=== PATIENT | female | born 1940 | race Caucasian/White ===

== ENCOUNTER 2017-08-24 19:49 | Inpatient (IN) | payer OTHER ==
[~2017-08-24] VITALS: Ht 165.1 cm; Wt 52.7 kg
[2017-08-24 20:32] LABS: HEMATOCRIT 37.8 % (36.0-46.0); HEMOGLOBIN 12.7 G/DL (11.9-15.5); MCH 30.4 PG (29.0-34.0); MCHC 33.6 G/DL (30.0-36.0); MCV 90.4 FL (83-99); PLATELET COUNT 173 K/uL (156-360); RBC DIS.WIDTH-CV 12.5 % (11.8-14.6); RBC DIS.WIDTH-SD 41.1 % (39-53); RED BLOOD COUNT 4.18 M/uL (3.80-5.20); WHITE BLOOD COUNT 8.7 K/uL (4.1-10.2)
[2017-08-24 20:42] LABS: ALBUMIN 3.7 g/dL (3.2-4.8)
[2017-08-24 20:43] LABS: CHLORIDE 101 mEq/L (99-109); POTASSIUM 3.9 mEq/L (3.7-5.4); SODIUM 136 mEq/L (136-147)
[2017-08-24 20:45] LABS: GLUCOSE 98 mg/dL (70-99); TOTAL PROTEIN 6.8 g/dL (6.4-8.3)
[2017-08-24 20:47] LABS: TOTAL BILIRUBIN 1.2 mg/dL (0.0-1.0)
[2017-08-24 20:48] LABS: ALKALINE PHOSPHATASE 95 IU/L (3-129)
[2017-08-24 20:49] LABS: CREATININE 0.9 mg/dL (0.6-1.3); GFR ESTIMATE (CALCULATED) > 59 mL/min/
[2017-08-24 20:50] LABS: AST (GOT) 26 IU/L (2-34); UREA NITROGEN (BUN) 22 mg/dL (9-23)
[2017-08-24 20:52] LABS: ALT (GPT) 15 IU/L (3-49); LIPASE 20 U/L (1.0-51.0)
[2017-08-24 20:54] LABS: TROP-I INTERPRETATION NEGATIVE; TROPONIN-I 0.01 ng/mL (0.0-0.30)
[2017-08-24 21:03] LABS: APPEARANCE CLEAR ((CLEAR)); BILIRUBIN NEGATIVE; BLOOD MODERATE; COLOR YELLOW ((YELLOW)); GLUCOSE (STRIP) NEGATIVE; KETONES 20; LEUKOCYTES NEGATIVE; NITRITE NEGATIVE; PROTEIN (STRIP) NEGATIVE; UROBILINOGEN 0.2 MG/DL (0.2-1.0)
[2017-08-24 21:16] LABS: BACTERIA NONE SEEN /HPF; EPITHELIAL CELLS RARE /HPF; MUCUS TRACE /LPF; UCUL ADDED? NO; WHITE BLOOD CELLS NONE SEEN /HPF (0-5)
[2017-08-25 04:07] VITALS: BP 114/71
[2017-08-25 05:50] LABS: HEMATOCRIT 39.3 % (36.0-46.0); HEMOGLOBIN 12.9 G/DL (11.9-15.5); MCHC 32.8 G/DL (30.0-36.0); MCV 91.4 FL (83-99); PLATELET COUNT 185 K/uL (156-360); RBC DIS.WIDTH-CV 12.6 % (11.8-14.6); RBC DIS.WIDTH-SD 41.6 % (39-53); WHITE BLOOD COUNT 6.2 K/uL (4.1-10.2)
[2017-08-25 06:05] LABS: TROP-I INTERPRETATION NEGATIVE; TROPONIN-I 0.01 ng/mL (0.0-0.30)
[2017-08-25 06:14] LABS: HDL CHOLESTEROL 60 MG/DL (Desirable>=50); LDL CHOLESTEROL 70 mg/dL (Desirable<100); NON-HDL CHOLESTEROL 78 mg/dL (Desirable<160); TOTAL CHOLESTEROL 138 mg/dL (Desirable<200); TRIGLYCERIDES 41 MG/DL (Normal: <150)
[2017-08-25 07:00] VITALS: BP 137/78
[2017-08-25 09:47] LABS: THYROTROPIN (TSH) 0.75 MIU/L (0.4-5.5)
[2017-08-25 11:45] VITALS: BP 131/75
[2017-08-25 12:23] LABS: TROP-I INTERPRETATION NEGATIVE; TROPONIN-I < 0.01 ng/mL (0.0-0.30)
[2017-08-25] MEDS ORDERED: LIPITOR10 MG PO (15:14)
[2017-08-25 15:15] VITALS: BP 139/73
[2017-08-25] MEDS ORDERED: METOPROLOL TART25 MG PO (15:15)
[2017-08-25 20:00] VITALS: BP 134/73
[2017-08-25 23:55] VITALS: BP 144/92
[2017-08-26 04:00] VITALS: BP 126/77
[2017-08-26 08:00] VITALS: BP 153/96
[2017-08-26 09:06] LABS: Estimated Average Glucose 131 mg/dL (70-123); HEMOGLOBIN A1c (GLYCOHEMOGLOB) 6.2 % HGB (Below 5.7)
[2017-08-26 12:00] VITALS: BP 155/96
[2017-08-26 15:56] VITALS: BP 146/97
[2017-08-26 19:04] VITALS: BP 138/82
[2017-08-26 23:35] VITALS: BP 138/62
[2017-08-27 03:15] VITALS: BP 130/78
[2017-08-27 08:00] VITALS: BP 124/72
[2017-08-27 18:48] VITALS: BP 132/90
[2017-08-27 21:30] VITALS: BP 114/81
[2017-08-28 00:16] VITALS: BP 127/73
[2017-08-28 03:31] VITALS: BP 122/79
[2017-08-28 07:28] VITALS: BP 122/76
[2017-08-28 11:28] VITALS: BP 122/86
[2017-08-28] MEDS ORDERED: ENDOCET 5-3251 EACH PO (14:22)
[2017-08-28] MEDS ORDERED: ATORVASTATIN CA40 MG PO (14:22)
[2017-08-28] MEDS ORDERED: ASPIR-LOW81 MG PO (14:22)
[2017-08-28] MEDS ORDERED: DOCUSATE SODIU100 MG PO (14:23)
[2017-08-28 15:33] VITALS: BP 123/86
== END 2017-08-28 16:03 | DRG 65 ==
LOC: EME 19:49 → TRA 19:49 → EDOF 08-25 01:53 → 4EAST 08-25 01:53 → ENRESERV 08-25 01:54 → EDOF 08-25 03:30 → 4EAST 08-25 03:49 → ENRESERV 08-27 15:27 → 5SOUTH 08-27 18:07
PROVIDERS: Emergency Medicine; Hospitalist
DX: I63.412 Cerebral infarction due to embolism of left middle cerebral artery (principal); I48.91 Unspecified atrial fibrillation; R40.4 Transient alteration of awareness; G81.91 Hemiplegia, unspecified affecting right dominant side; R47.01 Aphasia; R29.810 Facial weakness; R47.1 Dysarthria and anarthria; R29.709 NIHSS score 9; I11.0 Hypertensive heart disease with heart failure; I50.22 Chronic systolic (congestive) heart failure; R73.03 Prediabetes; E78.5 Hyperlipidemia, unspecified; Z60.2 Problems related to living alone
CPT/HCPCS: 70450; 70496; 70498; 70551; 71020; 72125; 80053; 80061; 81003; 83036; 83605; 83690; 84439; 84443; 84484; 85027; 87040; 93005; 93306; 99281; 99285; J1200; J1956; J2930; J7040; J7050

== ENCOUNTER 2017-08-28 14:18 | Inpatient (IN) | payer OTHER ==
[~2017-08-28] VITALS: Ht 162.6 cm; Wt 51.4 kg
[~2017-08-28 14:18] MED LIST: LIPITOR10 MG PO; METOPROLOL TART25 MG PO
[2017-08-28] MEDS ORDERED: ENDOCET 5-3251 EACH PO (14:22)
[2017-08-28] MEDS ORDERED: ASPIR-LOW81 MG PO (14:22)
[2017-08-28] MEDS ORDERED: ATORVASTATIN CA40 MG PO (14:22)
[2017-08-28] MEDS ORDERED: DOCUSATE SODIU100 MG PO (14:23)
[2017-08-28 16:32] VITALS: BP 139/84
[2017-08-29 00:20] VITALS: BP 103/68
[2017-08-29 04:42] VITALS: BP 125/76
[2017-08-29 05:51] LABS: HEMATOCRIT 40.1 % (36.0-46.0); HEMOGLOBIN 13.5 G/DL (11.9-15.5); MCH 30.4 PG (29.0-34.0); MCHC 33.7 G/DL (30.0-36.0); MCV 90.3 FL (83-99); PLATELET COUNT 194 K/uL (156-360); RBC DIS.WIDTH-CV 12.3 % (11.8-14.6); RBC DIS.WIDTH-SD 41.1 % (39-53); RED BLOOD COUNT 4.44 M/uL (3.80-5.20)
[2017-08-29 06:08] LABS: ALBUMIN 3.2 G/DL (3.2-4.8); ALKALINE PHOSPHATASE 70 IU/L (3-129); ALT (GPT) 13 IU/L (3-49); AST (GOT) 17 IU/L (2-34); CHLORIDE 105 MEQ/L (99-109); GFR ESTIMATE (CALCULATED) 57 mL/min/; GLUCOSE 97 mg/dL (70-99); POTASSIUM 4.2 MEQ/L (3.7-5.4); SODIUM 138 MEQ/L (136-147); TOTAL BILIRUBIN 0.6 MG/DL (0.0-1.0); TOTAL PROTEIN 5.8 G/DL (6.4-8.3)
[2017-08-29 06:09] LABS: UREA NITROGEN (BUN) 41 mg/dL (9-23)
[2017-08-29 15:30] VITALS: BP 108/69
[2017-08-30 05:51] VITALS: BP 104/65
[2017-08-30 15:40] VITALS: BP 121/72
[2017-08-31 05:34] VITALS: BP 142/85
[2017-08-31 15:34] VITALS: BP 130/84
[2017-09-01 05:53] VITALS: BP 108/57
[2017-09-01 15:56] VITALS: BP 111/67
[2017-09-02 05:08] VITALS: BP 97/54
[2017-09-02 16:44] VITALS: BP 115/70
[2017-09-02 19:16] LABS: APPEARANCE SL.HAZY ((CLEAR)); BILIRUBIN NEGATIVE; BLOOD MODERATE; COLOR YELLOW ((YELLOW)); GLUCOSE (STRIP) NEGATIVE; KETONES NEGATIVE; LEUKOCYTES NEGATIVE; NITRITE NEGATIVE; PROTEIN (STRIP) NEGATIVE; SPECIFIC GRAVITY 1.025 (1.000-1.030)
[2017-09-02 19:24] LABS: BACTERIA NONE SEEN /HPF; EPITHELIAL CELLS RARE /HPF; HYALINE CASTS 0-5 /LPF; MUCUS TRACE /LPF; URIC ACID CRYSTALS 1+ /HPF; WHITE BLOOD CELLS 0-5 /HPF (0-5)
[2017-09-03 05:11] VITALS: BP 110/64
[2017-09-03 16:27] VITALS: BP 117/61
[2017-09-04 05:08] VITALS: BP 103/50
[2017-09-04 15:58] VITALS: BP 124/57
[2017-09-05 05:21] VITALS: BP 116/66
[2017-09-05 15:04] VITALS: BP 111/63
[2017-09-06 06:00] VITALS: BP 91/55
[2017-09-06 06:10] LABS: HEMATOCRIT 36.9 % (36.0-46.0); MCH 29.7 PG (29.0-34.0); MCHC 32.5 G/DL (30.0-36.0); MCV 91.3 FL (83-99); PLATELET COUNT 211 K/uL (156-360); RBC DIS.WIDTH-CV 12.4 % (11.8-14.6); RBC DIS.WIDTH-SD 41.5 % (39-53); RED BLOOD COUNT 4.04 M/uL (3.80-5.20)
[2017-09-06 06:40] LABS: ALBUMIN 3.2 G/DL (3.2-4.8); ALKALINE PHOSPHATASE 73 IU/L (3-129); ALT (GPT) 15 IU/L (3-49); AST (GOT) 20 IU/L (2-34); CHLORIDE 104 MEQ/L (99-109); CREATININE 0.9 MG/DL (0.6-1.3); GFR ESTIMATE (CALCULATED) > 59 mL/min/; GLUCOSE 95 mg/dL (70-99); POTASSIUM 3.7 MEQ/L (3.7-5.4); SODIUM 139 MEQ/L (136-147); TOTAL BILIRUBIN 0.5 MG/DL (0.0-1.0); TOTAL PROTEIN 5.7 G/DL (6.4-8.3); UREA NITROGEN (BUN) 26 mg/dL (9-23)
[2017-09-06] MEDS ORDERED: DOCUSATE SODIU100 MG PO (12:15)
[2017-09-06] MEDS ORDERED: METOPROLOL TART25 MG PO (12:15)
[2017-09-06] MEDS ORDERED: SENNA PLUS TAB1 EACH PO (12:15)
[2017-09-06] MEDS ORDERED: ATORVASTATIN CA40 MG PO (12:15)
[2017-09-06] MEDS ORDERED: ASPIR-LOW81 MG PO (12:15)
[2017-09-06 15:36] VITALS: BP 89/62
[2017-09-06 16:10] VITALS: BP 101/66
[2017-09-07 05:51] VITALS: BP 101/59
== END 2017-09-07 13:47 | DRG 65 ==
LOC: 3WEST 14:18 → ENPENDDIS 09-07 → 3WEST 09-07 13:47
PROVIDERS: Physical Medicine & Rehabilitation Pain Medicine
PROC: F07M7ZZ Manual Therapy Techniques Treatment of Musculoskeletal System - Whole Body (ICD-10-PCS; principal; 2017-08-28)
DX: I63.512 Cerebral infarction due to unspecified occlusion or stenosis of left middle cerebral artery (principal); R47.01 Aphasia; I48.91 Unspecified atrial fibrillation; R73.03 Prediabetes; I50.22 Chronic systolic (congestive) heart failure; I11.0 Hypertensive heart disease with heart failure; I27.20 Pulmonary hypertension, unspecified; K59.00 Constipation, unspecified; Z68.1 Body mass index [BMI] 19.9 or less, adult
CPT/HCPCS: 80053; 81003; 85027; 87086; 92507 GN; 92523 GN; 97110 GO; 97127 GO; 97530 GP